=== PATIENT | male | born 1970 | race Hispanic/Latino ===

== ENCOUNTER 2023-02-05 18:10 | Emergency (ER) | payer SELFPAY ==
[~2023-02-05] VITALS: Ht 180.3 cm; Wt 102.1 kg
[2023-02-05] MEDS ORDERED: TORADOL IM PRN (18:30)
[2023-02-05 18:34] VITALS: BP 115/80
[2023-02-05] MEDS ORDERED: TORADOL ONE (18:43)
[2023-02-05] MEDS ORDERED: VENTOLIN IH STA (19:02)
--- NOTE | 2023-02-05 19:07 | ER.PDOC ---
General Chief Complaint: Cough/Congestion Stated Complaint: COUGH/CONGESTION,ST Time seen by MD: 18:45 Source: patient Exam Limitations: no limitations History of Present Illness Initial Comments Patient is a 52-year-old male with a past medical history documented later in this chart who comes in with upper respiratory infection-like symptoms over the past 2 to 3 days. Patient states that over the past 2 to 3 days he has had the following symptoms including clear rhinorrhea nasal congestion nonproductive cough and a subjective fever. Patient states that activity makes symptoms worse he does not know what makes them better. Constitutional: fever, malaise EENTM: nose congestion Respiratory: cough Cardiovascular: no symptoms reported Gastrointestinal: no symptoms reported Genitourinary: no symptoms reported Musculoskeletal: no symptoms reported Skin: no symptoms reported Psychiatric/Neurological: no symptoms reported Endocrine: no symptoms reported Hematologic/Lymphatic: no symptoms reported Past Medical History Medical History: no pertinent history Surgical History: no surgical history Family History Significant Family History: no pertinent family hx Social History Alcohol Use: occassionally Drug Use: none Reviewed Nursing Reviewed: Vital Signs, Abn. Noted, Nursing Assessment Physical Exam General Appearance: alert, no distress Eye: eyes nml inspection, lids & conjunct. nml, PERRL, no nystagmus Ear: ear nml Nose: nose nml Throat: pharynx nml, airway nml Neck: nml inspection, supple Respiratory: no resp.distress, wheezes (Mild) Abdomen: non-tender, no organomegaly CVS: reg rate & rhythm, heart sounds nml Skin: color nml, no rash, warm/dry Extremities: non-tender, nml ROM, no pedal edema NEURO/PSYCH: oriented x 3, CN's nml as tested, motor nml, sensation nml, mood/affect nml Results/Orders Results/Orders Orders - CLARICE PEACE MD Influenza A&B (02/05/23 18:30) Covid19 Antigen Ruchi Lulu (02/05/23 18:30) Strep Screen (02/05/23 18:30) Ketorolac Tromethamine (Toradol) (02/05/23 18:30) Albuterol Sulfate (Ventolin) (02/05/23 19:02) Vital Signs Date Time Temp Pulse Resp B/P (MAP) Pulse Ox O2 Delivery O2 Flow Rate FiO2 02/05/23 18:34 100.2 104 20 95 02/05/23 18:34 100.2 104 20 115/80 (92) 95 Room Air* 0 21 Administered Medications Medications (Trade) Dose Ordered Sig/David Route PRN Reason Start Time Stop Time Status Last Admin Dose Admin Ketorolac Tromethamine (Toradol) 15 mg OT PRN IM PAIN 4 - 6 02/05/23 18:30 02/10/23 18:29 02/05/23 18:47 15 MG Laboratory Tests Test 02/05/23 00:00 Influenza Type A Antigen NEGATIVE (NEG) Influenza Type B Antigen NEGATIVE (NEG) SARS-CoV-2 Antigen (Rapid) NEGATIVE (NEGATIVE) Group A Streptococcus Screen NEGATIVE (NEGATIVE) Progress Progress Patient here with upper respiratory infection-like symptoms we will swab for flu and COVID and will get ketorolac patient also has a little bit of wheezing will give him an albuterol treatment, help lungs. 1904reassessmentpatient still pending his breathing treatment however will still plan to Discharge patient he voiced understanding when to follow-up and when to return to the ER we will discharge patient with Dave Cain ketorolac and an albuterol MDI. ER DEPART Departure Time of Disposition: 19:06 Disposition: 01 HOME / SELF CARE / HOMELESS Impression: Primary Impression: Upper respiratory infection Condition: Improved Patient Instructions: Upper Respiratory Infection, Adult Referrals: PCP,UNKNOWN (PCP) PRIMARY CARE PROVIDER Additional Instructions: Take all medications as prescribed. Follow-up with your primary care provider within 1 week. If you have any new persistent or worsening symptoms or concerns seek medical attention. Duration or Time Spent with Pa: 20 Problem Qualifiers Primary Impression: Upper respiratory infection URI type: unspecified viral URI Qualified Codes: J06.9 - Acute upper respiratory infection, unspecified CLARICE PEACE MD Feb 05, 2023 19:07
[2023-02-05] MEDS ORDERED: VENTOLIN IH ONE (19:12)
== END 2023-02-05 19:28 | disposition home or self-care (01) ==
LOC: ER 18:10
DX: J06.9 Acute upper respiratory infection, unspecified (principal); Z20.822 Contact with and (suspected) exposure to COVID-19
CPT/HCPCS: 96372; 99283; 87426; 87070; 87880; 87804 ×2; 94640; J7613; J1885